=== PATIENT | male | born 1970 | race Caucasian/White ===

== ENCOUNTER 2019-08-30 05:15 | Emergency (ER) | payer BC ==
[~2019-08-30] VITALS: Ht 180.3 cm; Wt 86.2 kg
[2019-08-30 05:20] VITALS: BP_SYST 138
[2019-08-30] MEDS ORDERED: ONDANSETRON HCL 4 MG/2 ML VIAL IVP ONE (05:45)
[2019-08-30] MEDS ORDERED: NACL 0.9% 1,000 ML IV ONE (05:45)
[2019-08-30] MEDS ORDERED: MORPHINE 2 MG/ML INJ. SYRINGE IVP ONE (05:45)
[2019-08-30 06:05] LABS: BASOPHILS % (AUTO) 0.4 % (0.0-2.0); EOSINOPHILS % (AUTO) 0.1 % (0.0-4.0); HEMATOCRIT 44.3 % (36-54); HEMOGLOBIN 15.9 g/dL (14.0-18.0); LYMPHOCYTES # (AUTO) 1.3 K/uL (1.0-5.5); LYMPHOCYTES % (AUTO) 11.9 % (20.5-51.5); MEAN CORPUSCULAR HEMOGLOBIN 33 pg (27-31); MEAN CORPUSCULAR HGB CONC 36 % (32-36); MEAN CORPUSCULAR VOLUME 93 fL (79.0-98.0); MONOCYTES # (AUTO) 0.9 K/uL (0.0-1.0); MONOCYTES % (AUTO) 8.3 % (1.7-9.3); NEUTROPHILS # (AUTO) 8.3 K/uL (1.8-7.7); NEUTROPHILS % (AUTO) 79.3 % (40.0-70.0); PLATELET COUNT (AUTO) 211 K/uL (130-430); RED BLOOD CELL COUNT(AUTO) 4.78 MIL/uL (4.2-6.2); WHITE BLOOD COUNT (AUTO) 10.5 K/uL (4.8-10.8)
[2019-08-30 06:21] LABS: CALCIUM 8.7 mg/dL (8.4-11.0); CREATININE 1.21 mg/dL (0.55-1.30); POTASSIUM 4.1 mmol/L (3.5-5.1)
[2019-08-30 06:26] LABS: PROTHROMBIN TIME 10.4 SECS (9.5-12.5)
[2019-08-30 06:32] LABS: TOTAL BILIRUBIN 0.8 mg/dL (0.0-1.0)
[2019-08-30] MEDS ORDERED: LEVOFLOXACIN 500 MG/D5W 100 ML IV ONE (08:45)
[2019-08-30] MEDS ORDERED: metroNIDAZOLE 500 mg/NS 100 ML IV ONE (08:45)
[2019-08-30 10:41] VITALS: BP_SYST 132
== END 2019-08-30 10:50 | disposition home or self-care (01) ==
LOC: SED 05:15
DX: K92.2 Gastrointestinal hemorrhage, unspecified (principal); R19.7 Diarrhea, unspecified
CPT/HCPCS: 36415; 74176; 80053; 83690; 84484; 85025; 85610; 85730; 93005; 96361; 96365; 96366; 96368; 96375; 99284; J1956; J2270; J2405; J3490; J7030

== ENCOUNTER 2021-01-02 07:42 | Emergency (ER) | payer BC, OTHER ==
[~2021-01-02] VITALS: Ht 180.3 cm; Wt 88.5 kg
[2021-01-02 07:52] VITALS: BP_SYST 157
[2021-01-02 08:47] VITALS: BP_SYST 157
== END 2021-01-02 08:47 | disposition home or self-care (01) ==
LOC: SED 07:42
DX: S83.8X1A Sprain of other specified parts of right knee, initial encounter (principal); X50.1XXA Overexertion from prolonged static or awkward postures, initial encounter; Y93.89 Activity, other specified; Y92.89 Other specified places as the place of occurrence of the external cause; Y99.9 Unspecified external cause status
CPT/HCPCS: 73564; 99283